=== PATIENT | female | born 1990 ===

== ENCOUNTER 2023-10-13 12:57 | Emergency (ER) | payer MEDICAID ==
[~2023-10-13] VITALS: Ht 165.1 cm; Wt 65.9 kg
[2023-10-13 13:00] VITALS: BP 147/68; PULSE 82; RESP 18; TEMP 98
== END 2023-10-13 18:22 | disposition home or self-care (01) ==
LOC: EMS 12:57
DX: S81.811A Laceration without foreign body, right lower leg, initial encounter (principal); X58.XXXA Exposure to other specified factors, initial encounter; Y93.89 Activity, other specified; Y92.89 Other specified places as the place of occurrence of the external cause; Y99.8 Other external cause status
CPT/HCPCS: 99281; Z7502